=== PATIENT | male | born 1950 | race Caucasian/White ===

== ENCOUNTER 2017-11-08 22:07 | Emergency (ER) | payer SELFPAY ==
[~2017-11-08] VITALS: Ht 162.6 cm; Wt 65.8 kg
[2017-11-08 22:10] VITALS: BP 140/77
--- NOTE | 2017-11-08 22:35 | NUR ---
PT CALLED. NO PATIENT FOUND.
--- NOTE | 2017-11-08 22:35 | NUR ---
PATIENT LEFT WITHOUT BEING SEEN BY DR. OTERO. NO FURTHER CARE PROVIDED FOR PATIENT.
--- NOTE | 2017-11-08 22:40 | NUR ---
PT CALLED BACK TO A BED. NO PATIENT FOUND OR RESPONDED.
--- NOTE | 2017-11-08 22:45 | NUR ---
PATIENT CALLED TO BED. NO PATIENT FOUND.
== END 2017-11-08 22:35 | disposition left against medical advice (07) ==
LOC: MED 22:07
DX: F10.129 Alcohol abuse with intoxication, unspecified (principal); Z53.21 Procedure and treatment not carried out due to patient leaving prior to being seen by health care provider